=== PATIENT | female | born 1990 | race Caucasian/White ===

== ENCOUNTER 2019-03-04 17:54 | Emergency (ER) | payer OTHER ==
[~2019-03-04] VITALS: Ht 167.6 cm; Wt 63.5 kg
[2019-03-04 17:55] VITALS: Ht 167.6 cm; Wt 63.5 kg
[2019-03-04 18:37] LABS: UA SPECIFIC GRAVITY 1.025 (1.005-1.035); microscopic required? YES; urine erythrocyte TRACE (NEGATIVE)
[2019-03-04 18:40] LABS: BASOPHIL % 0.3 % (0-2); PLATELET COUNT 423 x10^3mcL (130-400); RED CELL DISTRIBUTION WIDTH 25.7 % (11.5-14.5)
[2019-03-04 18:48] LABS: AMPHETAMINE QUAL UR NONE DETECTED (See below)
[2019-03-04 18:56] LABS: CALCIUM 8.2 mg/dL (8.5-10.1); CARBON DIOXIDE 29.2 mmol/L (21-32); CHLORIDE SERUM 105 mmol/L (98-107); CREATININE SERUM 0.6 mg/dL (0.6-1.0); GFR1 > 60 mL/min; GLUCOSE SERUM 121 mg/dL (74-106); POTASSIUM SERUM 4.2 mmol/L (3.5-5.1); SODIUM SERUM 141 mmol/L (136-145)
[2019-03-04 19:14] LABS: ALBUMIN 3.6 g/dL (3.4-5.0); ALKALINE PHOSPHATASE 59 U/L (46-116); ALT/SGPT 29 U/L (14-59); AST/SGOT 16 U/L (15-37); CHOLESTEROL 146 mg/dL (<200); LIPASE 128 IU/L (73-393); MAGNESIUM 1.8 mg/dL (1.8-2.4); TOTAL PROTEIN, SERUM 7.1 g/dL (6.4-8.2)
[2019-03-04 19:20] LABS: HDL CHOLESTEROL 62 mg/dL (40-60)
[2019-03-05 07:31] VITALS: BP 105/56
== END 2019-03-05 07:31 ==
LOC: ED 17:54
PROVIDERS: Emergency Medicine
DX: F20.0 Paranoid schizophrenia (principal); F12.20 Cannabis dependence, uncomplicated
CPT/HCPCS: G0480; J1630; J2060; Q0092